=== PATIENT | female | born 1985 ===

== ENCOUNTER → 2016-08-10 | Outpatient (CLI) | payer OTHER ==
--- NOTE | 2016-08-10 18:10 | CPEEG ---
[f rep st] ELECTROENCEPHALOGRAM EEG DATE OF STUDY: 08/10/2016 INTERPRETATION: Normal EEG during wakefulness and sleep. There were no potentially epileptogenic a bnormalities present during the recording. REPORT: This EEG contains 9-10 Hz alpha activity to the posterior head regions. There was no abnor mal activation at rest, during photic stimulation, or hyperventilation. The patient became drowsy a nd fell asleep during the study. There was no abnormal activation during drowsiness, sleep, or duri ng times of arousal. /[id number]/MODL
== END ==
LOC: FCPNEURO 12:39
PROVIDERS: ATTEND Psychiatry & Neurology Neurology
DX: R40.4 Transient alteration of awareness (principal)